=== PATIENT | female | born 1975 | race Hispanic/Latino ===

== ENCOUNTER 2022-03-16 20:55 | Emergency (ER) | payer OTHER ==
[~2022-03-16] VITALS: Ht 165.1 cm; Wt 93.4 kg
[2022-03-16 21:38] LABS: APPEARANCE,URINE CLOUDY (CLEAR); BILIRUBIN,URINE NEGATIVE (NEGATIVE); COLOR,URINE ORANGE (YELLOW); GLUCOSE, URINE (UA) NEGATIVE (NEGATIVE); KETONES,URINE NEGATIVE (NEGATIVE); LEUKOCYTE ESTERASE ,URINE LARGE Leu/uL (NEGATIVE); NITRATE,URINE NEGATIVE (NEGATIVE); OCCULT BLOOD,URINE LARGE (NEGATIVE); PROTEIN,URINE 100 mg/dL (NEGATIVE); UROBILINOGEN,URINE 0.2 mg/dL (0.2-1.0)
[2022-03-16 21:47] LABS: RBC,URINE >100 /HPF (0-1)
[2022-03-16 21:48] LABS: BACTERIA,URINE Few /HPF (None Seen); SQUAMOUS EPITHELIAL CELL,UR Rare /HPF (0-2); WBC,URINE 26-50 /HPF (0-1)
[2022-03-16] MEDS ORDERED: CEPH500B PO (21:53)
[2022-03-16] MEDS ORDERED: PHENAZOPYRIDINE HCL 200 MG TABLET ONE (21:58)
[2022-03-16] MEDS ORDERED: CEFTRIAXONE 1G VIAL IM ONE (22:00)
[2022-03-16 22:16] VITALS: BP 133/73
== END 2022-03-16 22:20 | disposition home or self-care (01) ==
LOC: EDH 20:55
DX: N39.0 Urinary tract infection, site not specified (principal)
CPT/HCPCS: 99283; 87077; 87088; 87186; 81001; 81025; 96372; J0696

== ENCOUNTER 2022-12-16 21:13 | Emergency (ER) | payer OTHER ==
[~2022-12-16] VITALS: Ht 165.1 cm; Wt 94.3 kg
[~2022-12-16 21:13] MED LIST: CEPH500B PO
[2022-12-16 21:29] LABS: BASOPHILS % (AUTO) 1.1 % (0.0-5.0); EOSINOPHILS % (AUTO) 2.8 % (0.0-8.0); HEMATOCRIT 38.7 % (36-48); LYMPHOCYTES % (AUTO) 31.4 % (21.0-51.0); MEAN CORPUSCULAR HEMOGLOBIN 29.2 pg (27.0-33.0); MEAN CORPUSCULAR HGB CONC 33.1 g/dL (32.0-36.0); MEAN CORPUSCULAR VOLUME 88.2 fL (79-99); MONOCYTES % (AUTO) 9.1 % (3.0-13.0); NEUTROPHILS % (AUTO) 55.3 % (40.0-77.0); PLATELET COUNT (AUTO) 331 K/uL (130-400); RED BLOOD CELL COUNT(AUTO) 4.39 MIL/uL (4.00-5.50); RED CELL DISTRIBUTION WIDTH 13.2 % (11.0-15.5); WHITE BLOOD COUNT (AUTO) 7.5 K/uL (4.8-10.8)
[2022-12-16 21:48] LABS: ALBUMIN 3.6 g/dL (3.5-5.0); CREATININE 0.6 mg/dL (0.5-1.5); POTASSIUM 3.8 mmol/L (3.5-5.1); TOTAL PROTEIN, SERUM 7.4 g/dL (6.0-8.3)
[2022-12-16] MEDS ORDERED: HYDROXYZINE 25 MG TABLET PO ONE (23:00)
[2022-12-16 23:55] LABS: AMPHET/METH SCREEN,URINE NEGATIVE (NEGATIVE); BARBITURATE SCREEN, URINE NEGATIVE (NEGATIVE); BENZODIAZEPINES SCREEN,URINE NEGATIVE (NEGATIVE); CANNABINOID SCREEN,URINE NEGATIVE (NEGATIVE); COCAINE SCREEN,URINE NEGATIVE (NEGATIVE); OPIATE SCREEN,URINE NEGATIVE (NEGATIVE); PHENCYCLIDINE SCREEN,URINE NEGATIVE (NEGATIVE)
[2022-12-17 00:06] LABS: CREATINE KINASE, TOTAL 51 U/L (21-232); MYOGLOBIN 14 ng/mL (10-92); THYROID STIMULATING HORMONE 1.66 uIU/mL (0.36-3.74)
[2022-12-17 02:14] VITALS: BP 131/60
[2022-12-17] MEDS ORDERED: HYDR50CA50 PO (02:17)
== END 2022-12-17 02:33 | disposition home or self-care (01) ==
LOC: EDH 21:13
DX: R00.2 Palpitations (principal); F41.9 Anxiety disorder, unspecified; I10 Essential (primary) hypertension
CPT/HCPCS: 36415; 71045; 80053; 80305; 82550; 83605; 83874; 84443; 84484; 85025; 93005